=== PATIENT | male | born 1945 | race Caucasian/White ===

== ENCOUNTER 2019-12-31 06:11 | Day surgery (SDC) | payer MEDICARE, OTHER ==
[~2019-12-31 06:11] MED LIST: Sodium Chloride 0.9% 1,000 ML IV SCH
[2019-12-31] MEDS ORDERED: Sodium Chloride 0.9% 1,000 ML IV SCH (07:00)
[2019-12-31] MEDS ORDERED: Midazolam 1 MG/ML 2 ML SDV ONE (07:14)
[2019-12-31] MEDS ORDERED: Propofol 200 MG/20 ML SDV ONE ×2 (07:14→08:05)
[2019-12-31] MEDS ORDERED: fentaNYL 100 MCG/2 ML SDV ONE (07:14)
--- NOTE | 2019-12-31 15:04 | OR ---
DATE OF PROCEDURE: 12/31/2019 SURGEON: Mike Aldana MD PROCEDURE PERFORMED: Colonoscopy. FINDINGS: Descending colon polyp, approximately 1 cm, completely removed using hot snare wire device. COMPLICATIONS: None. 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 PREOPERATIVE DIAGNOSIS: Family history of colorectal cancer. POSTOPERATIVE DIAGNOSIS: Family history of colorectal cancer. RISKS: Risks, benefits, alternatives, and limitations including, but not limited to infection, bleeding, and perforation were explained, and the patient wished to proceed. PROCEDURE IN DETAIL: The patient was placed in left lateral decubitus position. Digital rectal exam was performed without abnormality. The scope was introduced and advanced atraumatically to the ileocecal valve. A photo was taken. The scope was brought back through the ascending, transverse, and descending colon and retroflexed. The polyp was identified and completely removed via the snare. No abnormal bleeding was noted after this. No abnormalities on retroflexion. No diverticulosis. No colitis. No other abnormalities. The patient tolerated the procedure well. Mike Aldana MD /[id number]
== END 2019-12-31 09:22 | disposition home or self-care (01) ==
LOC: JP.SDS 06:11
PROVIDERS: ATTEND Surgery
DX: Z12.11 Encounter for screening for malignant neoplasm of colon (principal); I10 Essential (primary) hypertension; Z80.0 Family history of malignant neoplasm of digestive organs
CPT/HCPCS: 45385; J2250; J2704; J3010; J7030